=== PATIENT | female | born 1970 | race Caucasian/White ===

== ENCOUNTER 2022-07-22 08:00 | Outpatient (CLI) | payer OTHER ==
--- NOTE | 2022-07-22 17:13 | XRAY Report ---
PROCEDURE: AC Joints INDICATIONS: PAIN IN LEFT SHOULDER TECHNIQUE: 2 views each of both acromioclavicular joints were acquired. COMPARISON: Left shoulder radiographs same day FINDINGS: Bones: No fractures or dislocations. Weightbearing views demonstrate unremarkable acromioclavicular joint alignment . No suspicious bony lesions. Superior ribs appear normal. Soft tissues: No suspicious soft tissue calcifications. IMPRESSION: No acute osseous abnormality. If symptoms persist, follow-up radiographs and/or CT or MR I may be helpful for further evaluation. Reviewed by: Teto Cristina MD on 07/22/2022 5:12 PM PDT Approved by: Teto Cristina MD on 07/22/2022 5:12 PM PDT Station ID: [id number]
--- NOTE | 2022-07-22 17:43 | XRAY Report ---
PROCEDURE: Shoulder 3 View LT INDICATIONS: PAIN IN LEFT SHOULDER TECHNIQUE: views of the shoulder were acquired. COMPARISON: None. FINDINGS: Bones: No fractures or dislocations. No suspicious bony lesions. Visualized ribs appear intact. Soft tissues: No suspicious soft tissue calcifications. IMPRESSION: No acute bony abnormality. If pain persists with conservative management, consider repeat radiographs in 10-14 days or cross-sectional imaging. Reviewed by: Toby Heredia on 07/22/2022 5:42 PM PDT Approved by: Toby Heredia on 07/22/2022 5:42 PM PDT Station ID: [id number]
--- NOTE | 2022-07-22 17:44 | XRAY Report ---
PROCEDURE: Humerus LT INDICATIONS: PAIN IN LEFT SHOULDER TECHNIQUE: 2 views of the humerus were acquired. COMPARISON: None. FINDINGS: Bones: No fractures or dislocations. No suspicious bony lesions. Soft tissues: No suspicious soft tissue calcifications or masses. IMPRESSION: No acute bony abnormality. Reviewed by: Toby Heredia on 07/22/2022 5:42 PM PDT Approved by: Toby Heredia on 07/22/2022 5:42 PM PDT Station ID: [id number]
== END 2022-07-22 23:59 | disposition home or self-care (01) ==
LOC: DI.S 08:00
PROVIDERS: ATTEND Nurse Practitioner
DX: M25.512 Pain in left shoulder (principal)

== ENCOUNTER 2023-09-07 08:00 | Outpatient (CLI) | payer OTHER ==
[2023-09-07 19:54] LABS: BILIRUBIN,URINE NEGATIVE (NEGATIVE); GLUCOSE, URINE (UA) 100 mg/dL (NEGATIVE); KETONES,URINE (UA) NEGATIVE (NEGATIVE); LEUKOCYTE ESTERASE, URINE SMALL (NEGATIVE); NITRITE,URINE POSITIVE (NEGATIVE); OCCULT BLOOD,URINE NEGATIVE (NEGATIVE); PROTEIN,URINE 30 mg/dL (NEGATIVE)
[2023-09-07 19:57] LABS: CLARITY,URINE CLEAR (CLEAR)
[2023-09-07 20:08] LABS: BACTERIA,URINE Rare /HPF (None Seen); RBC,URINE 0-5 /HPF (0-5); SQUAMOUS EPITHELIAL CELL,UR RARE Squamous (<= Few)
== END 2023-09-07 23:59 | disposition home or self-care (01) ==
LOC: LAB.S 08:00
PROVIDERS: ATTEND Emergency Medicine
DX: R30.0 Dysuria (principal)
CPT/HCPCS: 81001; 87077; 87086